=== PATIENT | female | born 1955 | race Caucasian/White ===

== ENCOUNTER → 2019-04-08 08:22 | Outpatient (CLI) | payer OTHER, SELFPAY ==
--- NOTE | ~2019-04-08 | MR_ITS ---
EXAMINATION: MR knee RT wo con DATE: 04/08/2019 09:13 INDICATION: Rupture of right popliteal cyst. TECHNIQUE: Magnetic resonance imaging (MRI) of the right knee was performed without intravenous contr ast. Sequences included axial PD-weighted FS FSE, coronal PD-weighted FSE and PD-weighted FS FSE, sag ittal PD-weighted FSE, and sagittal T2-weighted FS FSE. COMPARISON: Right knee radiographs 02/06/2019, ultrasound 02/10/2019 FINDINGS: Medial compartment: There is a complex tear of posterior root of medial meniscus. There is cartilage surface irregularity of tibial condyle and femoral condyle. There is mild subchondral edema-like marrow signal intensity in tibial condyle. Osteophytes are noted. Lateral compartment: Lateral meniscus is normal. There is cartilage surface regularity of tibial condyle and femoral condy le. Marginal osteophytes are noted. Patellofemoral compartment: There is deep partial thickness cartilage loss of patellar medial facet and median ridge and shallow partial-thickness cartilage loss of patellar lateral facet. There is cartilage surface irregularity o f trochlea. Osteophytes are noted. Ligaments and tendons: Anterior and posterior cruciate ligaments are normal. There are changes of prior sprains of medial co llateral ligament and fibular collateral ligament characterized by thickening and increased signal in tensity proximally. There is mild patellar tendinopathy. Fluid: There is a small knee joint effusion. There is a moderate-sized Tapia's cyst. IMPRESSION: 1. Moderate chondrosis of patellofemoral compartment and mild chondrosis of medial and lateral compar tments. 2. Tear of medial meniscus. 3. Moderate-sized Tapia's cyst. 4. Small knee joint effusion. Reviewed, dictated and finalized at location A. [employer] IMPRESSION: 1. Moderate chondrosis of patellofemoral compartment and mild chondrosis of med ial and lateral compartments. 2. Tear of medial meniscus. 3. Moderate-sized Tapia's cyst. 4. Small knee joint effusion.
== END ==
PROVIDERS: Visit Provider Orthopaedic Surgery
DX: M25.461 Effusion, right knee (principal); M71.21 Synovial cyst of popliteal space [Baker], right knee; S83.241A Other tear of medial meniscus, current injury, right knee, initial encounter; X58.XXXA Exposure to other specified factors, initial encounter
CPT/HCPCS: 73721

== ENCOUNTER 2019-05-03 09:12 | Outpatient (CLI) | payer OTHER, SELFPAY ==
--- NOTE | 2019-05-03 09:16 | ECG_ITS ---
Measurements Intervals [place] Rate: 55 P: 15 MA: 148 QRS: 15 QRSD: 94 T: 9 QT: 398 QTc: 381 Interpretive Statements SINUS BRADYCARDIA BASELINE ARTIFACT- I, II, III, AVR, AVL, AVF, V6 BORDERLINE ECG Electronically Signed On 05-03-2019 9:55:49 MARKETING ANALYTICS MANAGER by Piero Groves D.O.
== END 2019-05-03 09:13 | disposition home or self-care (01) ==
LOC: ANHSURGERY 09:16
PROVIDERS: PCP Internal Medicine; Visit Provider Orthopaedic Surgery
DX: E78.00 Pure hypercholesterolemia, unspecified (principal); R94.31 Abnormal electrocardiogram [ECG] [EKG]
CPT/HCPCS: 93005

== ENCOUNTER 2019-05-11 00:36 | Day surgery (SDC) | payer OTHER, SELFPAY ==
[2019-04-27 14:51] VITALS: BMI 33.2
[2019-05-11] VITALS (8 sets, daily range): BP systolic 110–138; BP diastolic 53–76; PULSE 68–83; RESP 16–20; TEMP 36.2–36.7; O2SAT 94–99
--- NOTE | 2019-05-11 08:23 | PM.PNORT ---
Subjective Subjective Date/Time Seen: 05/11/19 08:23 Objective Data Meds/Results Medications: Active Medications Generic Name Dose Route Start Last Admin Trade Name Freq PRN Reason Stop Dose Admin Fentanyl Citrate 25 mcg 05/10/19 10:42 Sublimaze IV PUSH Q2M PRN Pain Lactated Ringer's 1,000 mls @ 30 mls/hr 05/10/19 10:45 Lr - Lactated Ringers Iv IV CONT .Q24H JOSE MANUEL Lactated Ringer's 1,000 mls @ 30 mls/hr 05/10/19 10:45 Lr - Lactated Ringers Iv IV CONT .Q24H JOSE MANUEL Ondansetron HCl 4 mg 05/10/19 10:42 Zofran Inj IV PUSH ONCE PRN Nausea
--- NOTE | 2019-05-11 13:49 | WPDANESEPPF ---
Anes - Initial Pre Proc Eval Procedure: Operation Date: 05/11/19 14:30 Proposed Procedures p Right Knee Arthroscopy, Proceed As Indicated - Miki Brown MD Date/Time: 05/11/19 13:49 Surgeon: Miki Brown MD Pre Op Diagnosis: Right Medial Meniscus Tear Patient Data Age: 63 Gender: F Height: 1.52 m Weight: 78.85 kg Last Vital Signs Temp 36.7 C 05/11/19 12:45 Pulse 73 05/11/19 12:45 Resp 18 05/11/19 12:45 BP 138/62 05/11/19 12:45 Pulse Ox 98 05/11/19 12:45 Allergies Allergy/AdvReac Type Severity Reaction Status Date / Time raloxifene Allergy Intermediate LEG CRAMPS Verified 05/11/19 13:18 Home Medications Medication Instructions Recorded Confirmed Type diclofenac sodium 75 mg 75 mg PO BID 03/29/19 05/11/19 History tablet,delayed release omeprazole 20 mg tablet,delayed 20 mg PO DAILY 03/29/19 05/11/19 History release simvastatin 10 mg tablet 10 mg PO DAILY 03/29/19 05/11/19 History ECG: SINUS BRADYCARDIA BASELINE ARTIFACT- I, II, III, AVR, AVL, AVF, V6 BORDERLINE ECG Patient hx anesthesia problems: none Family hx anesthesia problems: none PMFSH Past Medical History Medical History (Updated 05/10/19 @ 10:42 by Delfin Evangelista DO) Abnormal vision Arthritis Constipation GERD (gastroesophageal reflux disease) Headache High cholesterol Shortness of breath Urinary frequency Weight gain Surgical History Surgical History (Updated 05/10/19 @ 10:42 by Delfin Evangelista DO) History of hysterectomy Social History Social History Smoking status: Never smoker Alcohol intake: current Anes - Eval Final PreProcedure Day of Procedure 05/11/19 13:49 Patient weight: obese Heart: regular rate and rhythm Lungs: clear to auscultation and normal air movement Airway: Mallampati scale Neurological: alert and oriented Last oral intake: >/= 8 hours ASA classification: III Emergent: no Anesthetic plan: proceed Anesthesia type and monitoring: general LMA and standard monitoring Informed Consent: The patient's anesthetic plan and its attendant risks and benefits were discussed with the patient/family/POA. Questions were solicited and answers provided to the satisfaction of the patient/family/POA.
--- NOTE | 2019-05-11 14:55 | WPDHPUPDATE1 ---
History and Physical Update Update Date/Time: 05/11/19 14:55 History and Physical has been reviewed, including an updated exam of the patient. There are NO changes in the patient's condition. Risks, benefits, and alternatives have been discussed and questions answered. Patient agrees to proceed with procedure.
[2019-05-11] MEDS: ceFAZolin 2 GM/D5W 50 ML 2 GM/50 ML BAG IVPB (15:01)
[2019-05-11] MEDS: KETOROLAC 30 MG/ML VIAL (*BKC) IV PUSH (15:39)
[2019-05-11] MEDS: LACTATED RINGERS 1,000 ML 30 ML IV CONT ×2 (15:50)
--- NOTE | 2019-05-11 15:57 | PM.OP ---
Procedure Note - Brief Procedure Note - Brief Date of procedure: 05/11/19 Pre-op diagnosis: Right Medial Meniscus Tear lateral meniscus tear Procedure performed: R KNEE SCOPE Anesthesia: GETA Surgeon: Miki Brown MD Estimated blood loss (mL): 5 Complications: No immediate complications Condition: stable Disposition: PACU
--- NOTE | 2019-05-11 21:17 | OP_ITS ---
DATE OF PROCEDURE: 05/11/2019 PREOPERATIVE DIAGNOSIS: Medial meniscus tear. POSTOPERATIVE DIAGNOSES: Medial meniscus tear and lateral meniscus tear. PROCEDURE: Right knee arthroscopy with partial medial and lateral meniscectomies and minor synovectomy. ANESTHESIA: General. COMPLICATIONS: None. INDICATIONS: This is a 63-year-old female with a medial meniscus tear, which was not responding to nonoperative treatment. She was indicated for right knee arthroscopy. DESCRIPTION OF PROCEDURE: The patient was taken to the operating room in stable condition and placed in supine position. General anesthesia was induced and then the right lower extremity was prepped and draped sterilely from the toes to the thigh. A superior medial incision was made for the outflow portal and inferolateral incision made for the camera. The camera was introduced. There was grade 2 chondromalacia of the patella and minimal chondromalacia to the patellar groove. The medial compartment was entered. There was significant synovitis in the medial compartment, which was impinging at the joint line. The medial meniscus was identified and there was a complex tear. A medial portal was established and the medial meniscus tear was resected. There was also minimal chondromalacia which underwent chondroplasty. The ACL was identified and was intact. The lateral compartment was entered. There was a tear to the root of the lateral meniscus. A shaver and a biter were used to resect the lateral meniscus tear. There was also grade 2 chondromalacia of the lateral femoral condyle and that underwent chondroplasty as well. Next, the patellofemoral joint was returned and then chondroplasty was performed in that region as well. Synovectomy had been performed in the medial compartment to get rid of the impingement that was caused by the synovium. The wounds then were approximated with 4-0 nylon suture. Sterile dressing was applied. The patient was then extubated and sent to recovery. Jennifer I MT: Rukhsana
== END 2019-05-11 17:35 | disposition home or self-care (01) ==
PROVIDERS: PCP Internal Medicine; Visit Provider Orthopaedic Surgery
PROC: (CPT 29870; principal; 2019-05-11 14:30)
DX: M23.331 Other meniscus derangements, other medial meniscus, right knee (principal); M23.361 Other meniscus derangements, other lateral meniscus, right knee; M94.261 Chondromalacia, right knee; K21.9 Gastro-esophageal reflux disease without esophagitis; E78.00 Pure hypercholesterolemia, unspecified; M19.90 Unspecified osteoarthritis, unspecified site; E66.9 Obesity, unspecified; Z68.33 Body mass index [BMI] 33.0-33.9, adult
CPT/HCPCS: 29880; A9270; J0690; J1885; J2250; J2405; J2704; J3010; J7120

== ENCOUNTER 2020-03-30 11:56 | Outpatient (CLI) | payer OTHER, SELFPAY ==
--- NOTE | ~2020-03-30 | US_ITS ---
EXAMINATION: US pelvic complete w TV EXAM DATE: 03/30/2020 12:39 INDICATION: Pelvic pain. TECHNIQUE: Pelvic transabdominal and transvaginal sonogram was performed. There are multiple graysca le and Doppler images available for interpretation. There is no prior study for comparison. FINDINGS: Patient has had hysterectomy, the vaginal cuff is unremarkable. Right adnexa: The ovary is not identified. There is no adnexal mass. Left adnexa: The ovary is not identified. There is no adnexal mass. IMPRESSION: 1. Unremarkable pelvic ultrasound exam. Reviewed, dictated and finalized at location A. [employer]
== END 2020-03-30 11:57 | disposition home or self-care (01) ==
LOC: ANHIMG 11:57
PROVIDERS: Family Provider Family Medicine; PCP Internal Medicine; Visit Provider Obstetrics & Gynecology
DX: R10.2 Pelvic and perineal pain (principal)
CPT/HCPCS: 76830; 76856

== ENCOUNTER → 2020-05-16 00:54 | Outpatient (CLI) | payer OTHER, SELFPAY ==
[2020-05-16 18:32] LABS: SARS-CoV-2 RNA PCR Negative
== END ==
PROVIDERS: PCP Internal Medicine; Visit Provider Podiatrist Foot & Ankle Surgery
DX: Z01.812 Encounter for preprocedural laboratory examination (principal); Z20.822 Contact with and (suspected) exposure to COVID-19
CPT/HCPCS: C9803; U0003; U0005

== ENCOUNTER 2020-05-19 01:40 | Day surgery (SDC) | payer OTHER, SELFPAY ==
[2020-05-12 13:47] VITALS: BMI 33.2
--- NOTE | 2020-05-18 09:55 | WPDANESEPPF ---
Anes - Initial Pre Proc Eval Procedure: Operation Date: 05/19/20 11:00 Proposed Procedures p Arthrodesis Of The First Metatarsal Phalangeal Joint Right Foot - Sang Sanches JR, MD Date/Time: 05/18/20 09:55 Surgeon: Sang Sanches JR, MD Pre Op Diagnosis: arthritis right great toe joint Patient Data Age: 64 Gender: F Height: 1.52 m Weight: 77.2 kg Allergies Allergy/AdvReac Type Severity Reaction Status Date / Time raloxifene Allergy Mild LEG CRAMPS Verified 05/19/20 09:20 Home Medications Medication Instructions Recorded Confirmed Type omeprazole 20 mg tablet,delayed 20 mg PO PRN PRN 03/29/19 05/19/20 History release simvastatin 10 mg tablet 10 mg PO HS 03/29/19 05/19/20 History diclofenac sodium 75 mg 75 mg PO DAILY 05/31/19 05/19/20 History tablet,delayed release acetaminophen [Tylenol Extra 500 mg PO Q12H PRN 05/12/20 05/19/20 History Strength] Patient hx anesthesia problems: none Family hx anesthesia problems: none PMFSH Past Medical History Medical History (Updated 05/19/20 @ 10:05 by Delfin Evangelista DO) Abnormal vision Arthritis Claustrophobia Constipation GERD (gastroesophageal reflux disease) Headache High cholesterol Liver lesion Shortness of breath Urinary frequency Weight gain Surgical History Surgical History (Updated 05/18/20 @ 09:56 by Delfin Evangelista DO) History of hysterectomy 2018 Family History Family History Other Cancer Family history of arthritis Family history of cardiovascular disease Social History Social History Smoking status: Never smoker Alcohol intake: current Living arrangements: alone Spiritual care concerns: No Anes - Eval Final PreProcedure Day of Procedure 05/18/20 09:55 Patient weight: obese Heart: regular rate and rhythm Lungs: clear to auscultation and normal air movement Airway: Mallampati scale class II Neurological: alert and oriented Last oral intake: >/= 8 hours ASA classification: III Emergent: no Anesthetic plan: proceed Anesthesia type and monitoring: general LMA and standard monitoring Informed Consent: The patient's anesthetic plan and its attendant risks and benefits were discussed with the patient/family/POA. Questions were solicited and answers provided to the satisfaction of the patient/family/POA.
[2020-05-19] VITALS (8 sets, daily range): BP systolic 113–144; BP diastolic 51–65; PULSE 69–102; RESP 16–20; TEMP 36.3–36.6; O2SAT 95–100
--- NOTE | ~2020-05-19 | XR_ITS ---
EXAMINATION: XR surgery orthopedic EXAM DATE: 05/19/2020 12:07 INDICATION: Right foot arthrodesis. TECHNIQUE: Fluoroscopy used during XR surgery orthopedic performed by Dr. Sang Sanches JR MD. Radiologist was not present for the imaging or procedure. The DAP for this procedure was 0.4 cGycm2. FINDINGS: There is advanced arthritis at the right 1st metatarsophalangeal joint. Orthopedic plate b ridging this joint with supporting screws. Correlate with procedure note. IMPRESSION: Fluoroscopy used during right 1st MTP joint arthrodesis. Reviewed, dictated and finalized at location A.
--- NOTE | 2020-05-19 07:24 | WPDHPUPDATE1 ---
History and Physical Update Update Date/Time: 05/19/20 07:24 History and Physical has been reviewed, including an updated exam of the patient. There are NO changes in the patient's condition. Risks, benefits, and alternatives have been discussed and questions answered. Patient agrees to proceed with procedure.
[2020-05-19] MEDS: LACTATED RINGERS 1,000 ML 30 ML IV CONT (09:33)
[2020-05-19] MEDS: ceFAZolin 2 GM/D5W 50 ML 2 GM/50 ML BAG IVPB (10:55)
--- NOTE | 2020-05-19 13:17 | PM.PROC ---
Procedure Note - Detailed Date of procedure: 05/19/20 Pre-op diagnosis: arthritis right great toe joint Post-op diagnosis: same Procedure performed: Arthrodesis of the first metatarsal phalangeal joint right foot Implants: [employer] Cross Check plate with four 2.7mm locking screws and one 3.5mm lag screw Anesthesia: GLMA and local Surgeon: Sang Sanches JR, DPM Estimated blood loss (mL): 1 Drains: No Packing: No Pathology: none sent Complications: No immediate complications Condition: stable Disposition: same day Findings: PROCEDURE IN DETAIL: Under mild sedation, the patient was brought into the operating room, placed on the operating table in supine position. A pneumatic ankle tourniquet was placed about the patient's right ankle. Following general LMA, a local anesthetic block was obtained about the foot and ankle utilizing 20 cc of Exparel. The foot was then scrubbed, prepped, and draped in the usual aseptic manner. An Esmarch bandage was then used to exsanguinate the patient's foot and the pneumatic ankle tourniquet was then inflated. Surgery began in the following manner: Attention was directed to the dorsal aspect of the 1st metatarsophalangeal joint right foot where there was a large osteophyte noted along the dorsomedial aspect of the joint. The incision was made starting along the central shaft of the 1st metatarsal and extending just proximal to the interphalangeal joint of the hallux. The incision was continued deep down through the subcutaneous tissues using sharp and blunt dissection. All bleeders were cauterized as necessary. At this point, the dissection was continued down to the level of the periosteum and capsular structures overlying the 1st metatarsophalangeal joint. A full length periosteum and capsular incision was made just medial to the extensor hallucis longus tendon. The periosteum and capsular structures were freed from the base of the proximal phalanx as well as the distal 1st metatarsal. At this point, the 1st metatarsophalangeal joint was identified. There was hypertrophy of the base of the proximal phalanx obstructing the articular surface of the head of the first metatarsal and base of the proximal phalanx, this flange of bone was resected with a rongeur until the head of the first metatarsal was visualized. There was significant broadening and hypertrophy of the 1st metatarsophalangeal joint with coplete loss of cartilage. Utilizing a sagittal bone saw, the hypertrophied 1st metatarsal was resected dorsally, medially, and laterally. A power bur was used to make sure that there were no rough edges and also to further debride the hypertrophic 1st metatarsal. At this point, the reamer system for the [employer] system was used to denude the degenerative cartilage from the head of the 1st metatarsal as well as the base of the proximal phalanx. The cartilage and subchondral bone were fully debrided utilizing the reamer system until healthy bleeding bone was noted. Next, a 2-0 drill bit was used to further fenestrate the head of the 1st metatarsal as well as the base of the proximal phalanx in order to allow fusion across the 1st metatarsophalangeal joint. Next, a 0.045 inch K-wire was driven from the medial aspect of the base of the proximal phalanx into the head of the 1st metatarsal in order to serve as temporary fixation. A large steel plate was used to make sure that the hallux was in a rectus position in the sagittal plane as well as the frontal and transverse plane. Excellent position of the hallux was noted. Next, a CrossCHECK plate was placed atop the 1st metatarsophalangeal joint held in position with [place] wires. Utilizing standard principles and techniques, the 2 distal drill holes were drilled and two 2.7mm fully-threaded locking screws were driven from dorsal to plantar holding the distal aspect of the plate intact. At this point, a 3.5mm lag screw was driven from dorsal dis
== END 2020-05-19 14:25 | disposition home or self-care (01) ==
PROVIDERS: PCP Internal Medicine; Visit Provider Podiatrist Foot & Ankle Surgery
PROC: (CPT 28750; principal; 2020-05-19 11:00)
DX: M13.871 Other specified arthritis, right ankle and foot (principal); K21.9 Gastro-esophageal reflux disease without esophagitis; E78.00 Pure hypercholesterolemia, unspecified; K76.9 Liver disease, unspecified; E66.9 Obesity, unspecified; Z68.32 Body mass index [BMI] 32.0-32.9, adult
CPT/HCPCS: 28750; C1713; C9290; C9803; J0690; J1100; J2250; J2405; J2704; J3010; J7120; U0003; U0005

== ENCOUNTER 2020-06-30 09:48 | Outpatient (CLI) | payer OTHER, SELFPAY ==
[2020-06-30 10:22] LABS: Alanine Aminotransferase 17 U/L (4-35); Aspartate Amino Transferase 23 U/L (14-36)
== END 2020-06-30 09:49 | disposition home or self-care (01) ==
PROVIDERS: PCP Internal Medicine; Visit Provider Podiatrist Foot & Ankle Surgery
DX: B35.1 Tinea unguium (principal)
CPT/HCPCS: 36415; 84450; 84460

== ENCOUNTER → 2020-10-16 04:00 | Outpatient (CLI) | payer OTHER, SELFPAY ==
[2020-10-16 18:30] LABS: SARS-CoV-2 RNA PCR Negative
== END ==
PROVIDERS: PCP Internal Medicine; Visit Provider Nurse Practitioner Family
DX: Z20.822 Contact with and (suspected) exposure to COVID-19 (principal)
CPT/HCPCS: C9803; U0003; U0005

== ENCOUNTER 2021-07-13 07:31 | Outpatient (CLI) | payer OTHER, MEDICARE, SELFPAY ==
--- NOTE | ~2021-07-13 | MM_ITS ---
EXAMINATION: MM screening ashleigh BI w jason HISTORY: Screening TECHNIQUE: Craniocaudal and mediolateral oblique 3-D tomosynthesis images were obtained and synthetic 2-D images were generated. CAD analysis was submitted and interpreted. COMPARISON: Comparison to multiple prior studies sequentially, with oldest reviewed study dated 05/21. BREAST PARENCHYMAL COMPOSITION: There are scattered areas of fibroglandular density. FINDINGS: There is no evidence of suspicious mass, calcification, or architectural distortion to sugg est malignancy in either breast. There has been no suspicious interval change. IMPRESSION: 1. No mammographic evidence of malignancy. 2. Recommend routine screening mammography in one year. BI-RADS Category 1: Negative Reviewed, dictated and finalized at location A.
== END 2021-07-13 07:32 | disposition home or self-care (01) ==
PROVIDERS: PCP Internal Medicine; Visit Provider Obstetrics & Gynecology
DX: Z12.31 Encounter for screening mammogram for malignant neoplasm of breast (principal)
CPT/HCPCS: 77063; 77067

== ENCOUNTER 2022-08-22 10:28 | Outpatient (CLI) | payer MEDICARE, SELFPAY ==
--- NOTE | ~2022-08-22 | XR_ITS ---
Clinical Indication: Asthma PA and lateral views of the chest: Comparison: 07/19/2015 Findings: The lungs are clear, without evidence of focal consolidation or pleural effusion. Cardiome diastinal silhouette is within normal limits. Bones and soft tissues are unremarkable. Impression: Normal chest. Reviewed, dictated and finalized at location . Impression: Normal chest.
== END 2022-08-22 10:29 | disposition home or self-care (01) ==
LOC: ANHIMG 10:37
PROVIDERS: PCP Family Medicine; Visit Provider Family Medicine
DX: J45.909 Unspecified asthma, uncomplicated (principal)
CPT/HCPCS: 71046

== ENCOUNTER 2022-09-26 11:06 | Outpatient (CLI) | payer MEDICARE, SELFPAY ==
--- NOTE | ~2022-09-26 | MMUS_ITS ---
EXAMINATION: MM diagnostic ashleigh BI w jason, US breast RT limited HISTORY: Palpable lump in the upper inner quadrant of the right breast TECHNIQUE: Craniocaudal, mediolateral, and mediolateral oblique 3-D tomosynthesis images of the do ts were performed and synthetic 2-D images were generated. CAD analysis was submitted and interpreted . High resolution limited right breast ultrasound was performed. COMPARISON: 07/13/2021, 10/17/2017, 07/21/2015 BREAST PARENCHYMAL COMPOSITION: The breasts are almost entirely fatty. FINDINGS: MAMMOGRAPHIC FINDINGS: No suspicious mass, calcification, or architectural distortion are identified in either breast to sug gest malignancy. There has been no suspicious interval change. No mammographic correlate is identifie d for the reported palpable abnormality of the right breast. ULTRASOUND: There is no evidence of focal abnormal solid or cystic mass in the vicinity of the reported palpable abnormality of the right breast. IMPRESSION: 1. No specific mammographic or sonographic correlate is identified for the reported palpable abnormal ity of concern in the right breast. Further evaluation at this time should be based on clinical asses sment. Continued follow-up physical examination is recommended. 2. Recommend routine screening mammography in one year. BI-RADS Category 1: Negative Reviewed, dictated and finalized at location A. IMPRESSION: 1. No specific mammographic or sonographic correlate is identified for the repo rted palpable abnormality of concern in the right breast. Further evaluation at this time should be based on clinical assessment. Continued follow-up physical examination is recommended. 2. Recommend routine screening mammography in one year. BI-RADS Category 1: Negative
== END 2022-09-26 11:07 | disposition home or self-care (01) ==
PROVIDERS: PCP Family Medicine; Visit Provider Family Medicine
DX: N63.10 Unspecified lump in the right breast, unspecified quadrant (principal); R92.8 Other abnormal and inconclusive findings on diagnostic imaging of breast
CPT/HCPCS: 76642; 77062; 77066; G0279

== ENCOUNTER 2023-08-28 08:06 | Outpatient (CLI) | payer MEDICARE, SELFPAY ==
--- NOTE | ~2023-08-28 | MM_ITS ---
EXAMINATION: MM screening ashleigh BI w jason HISTORY: Screening mammogram TECHNIQUE: Craniocaudal and mediolateral oblique 3-D tomosynthesis images were obtained and synthetic 2-D images were generated. CAD analysis was submitted and interpreted. COMPARISON: 09/26/2022, 07/13/2021, 10/17/2017 BREAST PARENCHYMAL COMPOSITION:Not Dense. The breasts are almost entirely fatty FINDINGS: No suspicious mass, calcification, or architectural distortion are identified in either mario alberto ast to suggest malignancy. There has been no suspicious interval change. IMPRESSION: No mammographic evidence of malignancy. Recommend routine screening mammography in one year. BI-RADS Category 1: Negative Reviewed, dictated and finalized at location .
== END 2023-08-28 08:07 | disposition home or self-care (01) ==
PROVIDERS: PCP Family Medicine; Visit Provider Obstetrics & Gynecology
DX: Z12.31 Encounter for screening mammogram for malignant neoplasm of breast (principal)
CPT/HCPCS: 77063; 77067

== ENCOUNTER 2024-01-24 10:56 | Outpatient (CLI) | payer MEDICARE, SELFPAY ==
--- NOTE | ~2024-01-24 | MR_ITS ---
EXAMINATION: MR knee LT wo con DATE: 01/24/2024 11:30 INDICATION: Left knee pain TECHNIQUE: Magnetic resonance imaging (MRI) of the left knee was performed without intravenous contra st. Sequences included coronal PD-weighted FSE, coronal PD-weighted FS FSE, sagittal T2-weighted FSE , sagittal PD-weighted FS FSE and axial PD weighted fat saturated FSE. COMPARISON: None. FINDINGS: Medial compartment: Longitudinal tear extending obliquely to the inferior articular surface at the middle third of the po sterior body of the medial meniscus. There is subluxation of a small portion of the peripheral inferi or aspect of the meniscus located inferior and peripheral to the tear plane at the posterior body whi ch extends a few mm below the level of the medial rim of the healed tibial plateau. Articular cartila ge appears normal however while not directly visualized there is likely small region of high-grade ch ondromalacia along the medial tibial plateau as evidenced by a tiny focus of subarticular edema-like signal change along the central to medial aspect of the medial tibial plateau. Lateral compartment: Lateral meniscus is normal. Articular cartilage is normal. Patellofemoral compartment: Partial-thickness cartilage loss with generally smooth chondral surface along the patella. There is a small focus of deep or chondral ulceration with tiny foci of subarticular edema-like signal change a t the inferior aspect of the lateral patellar facet. Deep chondral fissuring at the inferior aspect o f the trochlear groove. 7 deep chondral fissuring with mild underlying cortical irregularity and smal l focus of edema-like signal change at the inferior aspect of the medial trochlea. Ligaments and tendons: Anterior and posterior cruciate ligaments are normal. The medial collateral ligament and fibular donna ateral ligament complex are normal. The extensor mechanism is normal. The visualized medial and later al hamstring tendons as well as the iliotibial band are normal. Fluid: Physiologic amount of fluid in the joint space. No loose osteochondral bodies identified. Osseous/other: Small low signal intensity bone island underlying the anterior weightbearing medial femoral condyle. Otherwise normal marrow signal. No fracture or pathologic marrow replacing process. IMPRESSION: 1. Longitudinal oblique tear at the posterior body of the medial tibial plateau. 2. Mild patellofemoral osteoarthritis with regions of moderate and high-grade chondromalacia and mild osteoarthritis with small focus of likely high-grade chondral malacia the medial compartment. Reviewed, dictated and finalized at location A. [employer] IMPRESSION: 1. Longitudinal oblique tear at the posterior body of the medial tibial plateau . 2. Mild patellofemoral osteoarthritis with regions of moderate and high-grade c hondromalacia and mild osteoarthritis with small focus of likely high-grade cho ndral malacia the medial compartment.
== END 2024-01-24 10:57 | disposition home or self-care (01) ==
PROVIDERS: PCP Orthopaedic Surgery; Visit Provider Orthopaedic Surgery
DX: M17.12 Unilateral primary osteoarthritis, left knee (principal); M94.262 Chondromalacia, left knee; S83.242A Other tear of medial meniscus, current injury, left knee, initial encounter; X58.XXXA Exposure to other specified factors, initial encounter
CPT/HCPCS: 73721

== ENCOUNTER 2024-08-25 10:21 | Outpatient (CLI) | payer MEDICARE, SELFPAY ==
--- NOTE | ~2024-08-25 | XR_ITS ---
EXAM/PROCEDURE: XR chest 2V - 08/25/2024 10:40 CDT HISTORY: 69 years old Female with PRODUCTIVE COUGH, TECHNIQUE: Two view(s) of the chest. COMPARISON: None available. FINDINGS: LUNGS/ PLEURA: No focal consolidation. No appreciable pneumothorax or large pleural effusion. HEART/ MEDIASTINUM: Heart appears normal in size. BONES: No acute osseous abnormality. OTHER: Visualized upper abdomen is unremarkable. IMPRESSION: No acute process. Reviewed, dictated and finalized at location A. IMPRESSION: No acute process.
== END 2024-08-25 10:22 | disposition home or self-care (01) ==
PROVIDERS: PCP Nurse Practitioner Family; Visit Provider Nurse Practitioner Family
DX: R05.8 Other specified cough (principal); R06.2 Wheezing; R07.9 Chest pain, unspecified
CPT/HCPCS: 71046